=== PATIENT | female | born 1995 | race Caucasian/White ===

== ENCOUNTER → 2017-10-13 | Outpatient (CLI) | payer BC, OTHER | LOC: RESP 11:59 | PROVIDERS: ATTEND Internal Medicine | DX: R06.02 Shortness of breath (principal); J98.4 Other disorders of lung | CPT/HCPCS: 94060; 94726; 94729 ==

== ENCOUNTER → 2018-01-21 | Outpatient (CLI) | payer BC, OTHER ==
--- NOTE | 2018-01-21 14:59 | RADIOLOGY IMAGING REPORT ---
FACILITY: [facility] PATIENT NAME: Jennifer Varghese : 1995 MR: [id number] V: [id number] EXAM DATE: [id number] ORDERING PHYSICIAN: LETY KUMAR TECHNOLOGIST: Location: [facility] [place] Patient: Jennifer Varghese : 1995 Visit/Account:[id number] Date of Sevice: 01/21/2018 Examination: MR brain without contrast History: Blurry vision, dizziness, headache Comparison: None Technique: Multiplane MR imaging was performed through the brain without contrast. Findings: Diffusion: None Ventricles: Normal Midline shift: None Extraaxial fluid: None. Midline craniocervical structures: Normal Parenchyma: Punctate right frontal deep white matter high signal focus, axial FLAIR image 15. Otherw ise normal. Vascular flow voids: Normal Orbits and paranasal sinuses: Proteinaceous right maxillary sinus mucous retention cyst measures 1.5 cm. Impression: 1. No acute finding. 2. Punctate right frontal deep white matter high signal focus in keeping with residua of prior micro vascular ischemia or inflammation. Such findings can be seen in setting of migraine disorders as wel l. 3. 1.5 cm right maxillary sinus proteinaceous mucous retention cyst. 4. Otherwise normal brain MR. Report Dictated By: Aristeo Keene MD at 01/21/2018 2:48 PM Report E-Signed By: Aristeo Keene MD at 01/21/2018 2:55 PM WSN:[id number]
== END ==
LOC: MRI 00:58
PROVIDERS: ATTEND Emergency Medicine Sports Medicine
DX: J34.1 Cyst and mucocele of nose and nasal sinus (principal)
CPT/HCPCS: 70551